=== PATIENT | female | born 1955 | race Caucasian/White ===

== ENCOUNTER 2017-05-20 03:26 | Emergency (ER) | payer MEDICAID, OTHER ==
[~2017-05-20] VITALS: Ht 162.6 cm; Wt 63.1 kg
[2017-05-20 03:32] VITALS: Ht 162.6 cm; Wt 63.1 kg
[2017-05-20] MEDS ORDERED: morphine 4 MG/ML VIAL IV STA (03:55)
[2017-05-20] MEDS ORDERED: ONDANSETRON 4 MG INJ IV STA (03:55)
[2017-05-20] MEDS ORDERED: HYDROmorphONE 1 MG/ML SYG IV ONE (04:33)
[2017-05-20 04:43] LABS: BASOPHIL # 0.1 10^3/ul (0.0-0.1); BASOPHILS % 0.8 % (0.0-2.0); EOSINOPHILS # 0.3 10^3/ul (0.0-0.5); EOSINOPHILS % 2.8 % (0.0-7.0); HEMOGLOBIN 12.6 g/dl (12.0-16.0); LYMPHOCYTES # 2.6 10^3/ul (0.8-2.9); LYMPHOCYTES % 23.9 % (15.0-51.0); MEAN CORPUSCULAR HEMOGLOBIN 28.9 pg (29.0-33.0); MEAN CORPUSCULAR HGB CONC 33.2 g/dl (32.0-37.0); MEAN CORPUSCULAR VOLUME 87.2 fl (82.0-101.0); MEAN PLATELET VOLUME 11.5 fl (7.4-10.4); MONOCYTE # 0.9 10^3/ul (0.3-0.9); MONOCYTES % 8.2 % (0.0-11.0); NEUTROPHIL # 6.9 10^3/ul (1.6-7.5); NEUTROPHILS % 63.8 % (39.0-77.0); PLATELET COUNT 244 10^3/UL (140-415); RED BLOOD COUNT 4.36 10^6/ul (4.20-5.40); RED CELL DISTRIBUTION WIDTH 13.2 % (11.5-14.5); WHITE BLOOD COUNT 10.9 10^3/ul (4.8-10.8)
[2017-05-20 05:01] LABS: ALANINE AMINOTRANSFERASE 32 IU/L (13-69); ALBUMIN 4.5 g/dl (3.3-4.9); ALKALINE PHOSPHATASE 118 IU/L (42-121); ANION GAP 18 (8-16); ASPARTATE AMINO TRANSFERASE 22 IU/L (15-46); BILIRUBIN,INDIRECT 0.4 mg/dl (0-1.1); BILIRUBIN,TOTAL 0.4 mg/dl (0.2-1.3); BLOOD UREA NITROGEN 18 mg/dl (7-20); CALCIUM 9.6 mg/dl (8.4-10.2); CARBON DIOXIDE 23 mmol/L (21-31); CHLORIDE 106 mmol/L (97-110); CREATININE 0.76 mg/dl (0.44-1.00); GLUCOSE 112 mg/dl (70-220); POTASSIUM 3.8 mmol/L (3.5-5.1); SODIUM 143 mmol/L (135-144); TOTAL PROTEIN 7.7 g/dl (6.1-8.1)
--- NOTE | 2017-05-20 05:05 | RADRPT ---
PROCEDURE: XR Chest. CLINICAL INDICATION: Chest Pain. TECHNIQUE: Portable single view of the chest COMPARISON: 06/27/2016 FINDINGS: The heart size is top normal. The aorta is slightly tortuous. Minimal interstitial prominence of the lungs. No definite acute infiltrate, pleural effusion, or overt congestive heart failure. No bony a bnormality is seen. IMPRESSION: No definite acute disease. RPTAT: HLBE Haily Topete Physician Date Time Electronically viewed and signed by Haily Topete, Physician on 05/20/2017 05:05 LINDA/
--- NOTE | 2017-05-20 05:09 | RADRPT ---
PROCEDURE: CT Abdomen and pelvis without contrast. CLINICAL INDICATION: Abdominal pain. TECHNIQUE: CT scan of the abdomen and pelvis was performed on a multi-detector high-resolution CT scanner. Contiguous axial images were obtained from the lung bases to the ischial tuberosities wit hout intravenous contrast. Coronal and sagittal reformatted images were also obtained. Images were reviewed on the PACS workstation. DICOM images are available. One or more of the following dose reduction techniques were used: - Automated exposure control. - Adjustment of the mA and/or kV according to patient size. - Use of iterative reconstruction technique. Exam CTD/vol = 7.69 mGy. Total exam DLP = 444.37 mGy-cm. COMPARISON: None. FINDINGS: Evaluation of the lung bases demonstrates mild bibasilar atelectasis. There is a calcified granuloma within the left lower lobe. Abdomen: The liver is normal in size. There is no focal mass or dilatation of the biliary tree. T he gallbladder is not distended. The spleen, pancreas and bilateral adrenal glands are within amelia l limits. Bilateral kidneys are normal in size with no contour deforming mass identified. There is no radiopaque renal or ureteral calculus identified. There is no hydronephrosis or hydroureter. T here is no retroperitoneal adenopathy. The abdominal aorta is of normal caliber with scattered athe rosclerotic calcifications. There is moderate retained stool within the colon. There are anastomotic sutures at the rectosigmoi d junction. There is no bowel obstruction or free air. A normal appendix is identified. There is n o diverticulosis or diverticulitis. There is no ascites. Pelvis: The bladder is unremarkable. The uterus and adnexa are within normal limits. There is no significant pelvic adenopathy or free fluid. There is a heterogeneous mass within the presacral yamile on with speckled calcifications measuring 3.3 cm AP by 3.5 cm transverse by 4.0 cm sagittal. The mas s appears to extend through the left neural foramen at S3-S4. Evaluation of the osseous structures demonstrates no suspicious lytic or blastic lesion. 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 Diff erential includes but is not limited to neurofibroma, schwannoma and chordoma. Further evaluation ca n be made by MRI. Moderate retained stool within the colon. Vascular calcifications reflective of atherosclerosis. Mild bibasilar atelectasis. .Christian Grady MD, Date Time Electronically viewed and signed by .Christian Grady MD, MD on 05/20/2017 05:09 .T/
[2017-05-20 05:13] LABS: B-TYPE NATRIURETIC PEPTIDE 207 PG/ML (0-125)
[2017-05-20 05:16] LABS: TROPONIN-I < 0.012 ng/ml (0.00-0.12)
--- NOTE | 2017-05-20 05:19 | ERD ---
ER Documentation Chief Complaint Chief Complaint c/osevere rectal pain, hypertensive crisis recently was put on B/P med HPI This is a 61-year-old female comes with severe rectal pain. Blood pressure was elevated. No nausea no vomiting no chills. Pain is mild to moderate intensity. History of rectal cancer. On-Q email and radiation already. No other current issues. Last bowel movement yesterday. ROS All systems reviewed and are negative except as per history of present illness. Medications Home Meds Unable to Obtain Active Prescriptions or Reported Meds Allergies Allergies: Coded Allergies: No Known Allergy (Unverified , 06/27/16) PMhx/Soc History of Surgery: Yes (RECTAL SURGERY) Anesthesia Reaction: No Hx Neurological Disorder: No Hx Respiratory Disorders: No Hx Cardiac Disorders: Yes (HTN) Hx Psychiatric Problems: No Hx Miscellaneous Medical Probl: Yes (RECATAL CA WITH RADIATION AND CHEMO) Hx Alcohol Use: No Hx Substance Use: No Hx Tobacco Use: No Smoking Status: Former smoker Physical Exam Vitals Vital Signs Date Time Temp Pulse Resp B/P Pulse Ox O2 Delivery O2 Flow Rate FiO2 05/20/17 04:16 Nasal Cannula 1 05/20/17 03:45 98.0 74 28 160/100 98 Room Air 05/20/17 03:32 99.2 63 24 208/95 99 Physical Exam Const: [] Head: Atraumatic Eyes: Normal Conjunctiva ENT: Normal External Ears, Nose and Mouth. Neck: Full range of motion..~ No meningismus. Resp: Clear to auscultation bilaterally Cardio: Regular rate and rhythm, no murmurs Abd: Soft, non tender, non distended. Normal bowel sounds Skin: No petechiae or rashes Back: No midline or flank tenderness Ext: No cyanosis, or edema Neur: Awake and alert Psych: Normal Mood and Affect Result Diagram: 05/20/175 05/20/17 034 Results 24 hrs Laboratory Tests Test 05/20/17 03:45 White Blood Count 10.910^3/ul Red Blood Count 4.3610^6/ul Hemoglobin 12.6g/dl Hematocrit 38.0% Mean Corpuscular Volume 87.2fl Mean Corpuscular Hemoglobin 28.9pg Mean Corpuscular Hemoglobin Concent 33.2g/dl Red Cell Distribution Width 13.2% Platelet Count 08362^3/UL Mean Platelet Volume 11.5fl Neutrophils % 63.8% Lymphocytes % 23.9% Monocytes % 8.2% Eosinophils % 2.8% Basophils % 0.8% Nucleated Red Blood Cells % 0.0/100WBC Neutrophils # 6.910^3/ul Lymphocytes # 2.610^3/ul Monocytes # 0.910^3/ul Eosinophils # 0.310^3/ul Basophils # 0.110^3/ul Nucleated Red Blood Cells # 0.010^3/ul Sodium Level 143mmol/L Potassium Level 3.8mmol/L Chloride Level 106mmol/L Carbon Dioxide Level 23mmol/L Anion Gap 18 Blood Urea Nitrogen 18mg/dl Creatinine 0.76mg/dl Glucose Level 112mg/dl Calcium Level 9.6mg/dl Total Bilirubin 0.4mg/dl Direct Bilirubin 0.00mg/dl Indirect Bilirubin 0.4mg/dl Aspartate Amino Transf (AST/SGOT) 22IU/L Alanine Aminotransferase (ALT/SGPT) 32IU/L Alkaline Phosphatase 118IU/L Troponin I < 0.012ng/ml B-Type Natriuretic Peptide 207PG/ML Total Protein 7.7g/dl Albumin 4.5g/dl Globulin 3.20g/dl Albumin/Globulin Ratio 1.40 Current Medications Medications (Trade) Dose Ordered Sig/Fausto Route PRN Reason Start Time Stop Time Status Last Admin Dose Admin Morphine Sulfate (morphine) 4 mg ONCE STAT IV 05/20/17 03:55 05/20/17 03:57 DC 05/20/17 04:00 Ondansetron HCl (Zofran Inj) 4 mg ONCE STAT IV 05/20/17 03:55 05/20/17 03:57 DC 05/20/17 03:59 Hydromorphone HCl (Dilaudid) 1 mg ONCE ONCE IV 05/20/17 04:33 05/20/17 04:34 DC 05/20/17 04:40 Procedures/MDM CT shows no rectal cancer and constipation. Please see radiologist full dictation for report. Medical decision-makin-year-old female rectal pain likely secondary to constipation burden along with a pre-existing rectal cancer. At this point pain is controlled. Patient will be discharged home. Follow-up in 8 hours for serial abdominal exams. Discharge home with Colace and pain medication. Departure Diagnosis: Primary Impression: Multiple complaints Condition: Stable MOGHADAM,MATA S. May 20, 2017 05:19
[2017-05-20] MEDS ORDERED: HYDR-902 PO (05:20)
[2017-05-20] MEDS ORDERED: DOCU-144 PO (05:20)
[2017-05-20 05:32] VITALS: BP 169/99; PULSE 92; RESP 12; TEMP 98
== END 2017-05-20 05:45 | disposition home or self-care (01) ==
LOC: E/R 03:26
DX: K62.89 Other specified diseases of anus and rectum (principal); I10 Essential (primary) hypertension; C20 Malignant neoplasm of rectum; Z87.891 Personal history of nicotine dependence
CPT/HCPCS: 36415; 71010; 74176; 80053; 83880; 84484; 85025; 93005; 96374; 96375; J1170; J2270; J2405; Z7502